=== PATIENT | female | born 1965 | race Caucasian/White ===

== ENCOUNTER → 2017-09-04 | Day surgery (SDC) | payer OTHER ==
[2017-08-27 16:09] LABS: HEMOGLOBIN 13.3 g/dL (12.0-16.0)
[2017-08-27 16:27] LABS: ANION GAP 10.8 mmol/L (8-16); BLOOD UREA NITROGEN 10 mg/dL (7-26); BUN/CREATININE RATIO 11 (6-25); CALCIUM 9.6 mg/dL (8.4-10.2); CARBON DIOXIDE 26 mmol/L (22-29); CHLORIDE 103 mmol/L (98-107); EST GLOMERULAR FILTRATION RATE > 60 ML/MIN (60-); GLUCOSE 160 mg/dL (74-118); POTASSIUM 3.8 mmol/L (3.5-5.1); SODIUM 136 mmol/L (136-145)
[~2017-09-04] MED LIST: ALPRAZOLAM ODT0.5 MG PO; ATORVASTATIN CA20 MG PO; BUPIVACAINE HC 0.75% PF 10ML VIAL INJ ONE; BUPROPION HCL XL; CHONDR SU A NA/HYALUR SOD 1 EACH KIT IO ONE; CYCLOPENTOLATE HCL 1% OPTH SOLN 2ML BTL ONE; EPINEPHRINE HCL INJ 1 MG/ML AMP ONE; FENTANYL CITRATE/PF 100MCG/2 ML INJ ONE; GATIFLOXACIN(OPTH) 5 ML LIQD ONE; LEVEMIR 10100 UNIT/1; LIDOCAINE 2% /EPINEPHRINE 20 ML SDV INJ ONE; LIDOCAINE HCL 2% LOCAL INJ 5 ML SDV VIAL INJ ONE; LIDOCAINE HCL-PF 4% 40 MG/1 ML 5ML AMP ONE; METFORMIN HCL500 M3 PO; MIDAZOLAM HCL 2 MG/2 ML VIAL ONE; NOVOLOG100 UNITS1 SC; NUVIGIL250 MG PO; PHENYLEPHRINE HCL 2 ML DROPS ONE; PILOCARPINE HCL(OPTH) 15 ML LIQD ONE; POVIDONE IODINE 5% (OPTH) 30 ML BTL ONE; PROPOFOL IV EMULSION 10 MG/ML 20 ML VIAL ONE; PROTONIX40 M2 PO; TOBRAMYCIN/DEXAMETHASONE(OPTH) 3.5 GM TUBE ONE; TRILIPIX; Z LAMOTRIGINE PO; Z NUVIGIL PO; Z.0.ABILIFY10 MG PO; Z.0.AMLODIPINE BESYL PO; Z.0.CLONAZEPAM2 MG PO; Z.0.CRESTOR10 MG PO; Z.0.GLIPIZIDE ER5 MG PO; Z.0.LEVOTHYROXINE50 PO; Z.0.LISINOPRIL5 MG PO; Z.0.SERTRALINE HCL10 PO; [UNRECOGNIZED DRUG - OTHER] PO; [UNRECOGNIZED DRUG - OTHER] PO
== END | disposition home or self-care (01) ==
LOC: OR 06:57
PROVIDERS: ATTEND Ophthalmology
DX: H25.11 Age-related nuclear cataract, right eye (principal); I10 Essential (primary) hypertension; G47.33 Obstructive sleep apnea (adult) (pediatric); E11.9 Type 2 diabetes mellitus without complications; K21.9 Gastro-esophageal reflux disease without esophagitis; F31.9 Bipolar disorder, unspecified; F41.9 Anxiety disorder, unspecified; Z88.5 Allergy status to narcotic agent; Z01.810 Encounter for preprocedural cardiovascular examination; Z01.812 Encounter for preprocedural laboratory examination; Z79.4 Long term (current) use of insulin
CPT/HCPCS: 36415 ×2; 66982; 80048; 81025; 82948; 85014; 85018; 93005; J0171; J2001 ×2; J2250; V2632

== ENCOUNTER → 2018-10-01 | Day surgery (SDC) | payer MEDICARE ==
[2018-09-21 15:50] LABS: HEMOGLOBIN 12.7 g/dL (12.0-16.0)
[2018-09-21 16:07] LABS: ANION GAP 11.7 mmol/L (8-16); BLOOD UREA NITROGEN 8 mg/dL (7-26); BUN/CREATININE RATIO 11 (6-25); CALCIUM 9.7 mg/dL (8.4-10.2); CARBON DIOXIDE 26 mmol/L (22-29); CHLORIDE 101 mmol/L (98-107); CREATININE, SERUM 0.76 mg/dL (0.57-1.11); EST GLOMERULAR FILTRATION RATE > 60 ML/MIN (60-); GLUCOSE 79 mg/dL (74-118); POTASSIUM 3.7 mmol/L (3.5-5.1); SODIUM 135 mmol/L (136-145)
[~2018-10-01] MED LIST changes: +ABILIFY5 MG PO; +AMLODIPINE BESYL5 MG PO; +CRESTOR10 MG PO; +CYTOMEL25 MCG PO; +EPINEPHRINE HCL 1:1000 1ML 1 MG/ML AMP ONE; -EPINEPHRINE HCL INJ 1 MG/ML AMP ONE; +LAMICTAL100 MG PO; -LEVEMIR 10100 UNIT/1; +LEVEMIR 10100 UNIT/1 SQ; +LEVOTHYROXINE50 MCG PO; +METFORMIN HCL500 MG PO; +NORCO 10-325 T1 EACH PO; +VALIUM2 MG PO; +ZESTRIL5 MG PO; +[UNRECOGNIZED DRUG - OTHER] PO
--- OUTSIDE RECORDS SUMMARY | 2018-10-01 05:21 | XMS REPORT ---
Author Author Admin, [place] Organization [facility] Address [address] [address] Phone Allergies, Adverse Reactions, Alerts Allergy Name Reaction Description Start Date Severity Status Provider PROZAC Critical Active Arthur Robledo MD TEGRETOL Critical Active Arthur Robledo MD CODEINE Critical Active Arthur Robledo MD Conditions or Problems Problem Name Problem Code Onset Date Status Entry Date Provider Comment Standard Description Annotate BIPOLAR II DISORDER, MOST RECENT EPISODE DEPRESSED Active Arthur Robledo MD Other bipolar disorders Medication List Medication Instructions Start Date Stop Date Generic Name NDC Status Provider Patient Instruction VALIUM 5 MG ORAL TABLET Take 1 tab By Mouth Every 4 - 6 hours As Needed anxiety DIAZEPAM [id number] Active Arthur Robledo MD Active ZOLOFT 100 MG ORAL TABLET Take 1 1/2 tab By Mouth Every Morning SERTRALINE HCL 29129488219 Active Arthur Robledo MD Active ABILIFY 20 MG ORAL TABLET Take 1 tab By Mouth Every Morning ARIPIPRAZOLE 23034010642 Active Arthur Robledo MD Active Vital Signs Date Name Value Unit Range Description blood pressure, diastolic 84 mm[Hg] BP olivera blood pressure, systolic 147 mm[Hg] BP sys height E&M 68 [in_us] Bdy height pulse rate E&M 80 /min Heart rate weight E&M 186.40 [lb_av] Weight Measured blood pressure, diastolic 75 mm[Hg] BP olivera blood pressure, systolic 130 mm[Hg] BP sys height E&M 68 [in_us] Bdy height pulse rate E&M 89 /min Heart rate weight E&M 185.50 [lb_av] Weight Measured blood pressure, diastolic 75 mm[Hg] BP olivera blood pressure, systolic 148 mm[Hg] BP sys height E&M 68 [in_us] Bdy height pulse rate E&M 90 /min Heart rate weight E&M 187.50 [lb_av] Weight Measured Encounters Date Encounter Provider Code Facility 10:52:14 CDT Est Patient Detailed - 40353 Arthur Robledo MD CPT-09652 [facility] 14:20:40 CDT Est Patient Exp Problem - 90335 Arthur Robledo MD CPT-27851 [facility] Procedures Code Procedure Name Date Entry Date Standard Description CPT-60162 Diagnostic evaluation (no medical) - 63571 11:03:28 CDT CPT-01242 Diagnostic evaluation with medical - 24008 14:13:21 MANAGER MEDICAL WRITING
--- OUTSIDE RECORDS SUMMARY | 2018-10-01 05:21 | XMS REPORT | Clinical Summary ---
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 Name Role Phone Aurora Lucia MD PCP Allergies Comments Active Allergy Reactions Severity Noted Date Codeine 02/11/2018 Medications Not on file Active Problems Not on file Encounters Care Team Description Date Type Specialty N/A 02/12/2018 Intake Access Isak Mahoney, Depression with suicidal ideation (Primary Dx); Bipolar 1 disorder, depressed 02/11/2018 Emergency Emergency Medicine - 02/12/2018 after 09/30/2017 Social History Date Tobacco Use Types Packs/Day Years Used Current Every Day Smoker Alcohol Use Drinks/Week oz/Week Comments No Sex Assigned at Date Recorded Not on file Industry Job Start Date Occupation Not on file Not on file Not on file Travel End Travel History Travel Start No recent travel history available. Last Filed Vital Signs Time Taken Vital Sign Reading 02/12/2018 5:12 AM CDT Blood Pressure 118/69 02/12/2018 5:12 AM CDT Pulse 78 02/11/2018 9:26 PM CDT Temperature 36.6 C (97.9 F) 02/12/2018 5:12 AM CDT Respiratory Rate 16 02/12/2018 5:12 AM CDT Oxygen Saturation 95% - Inhaled Oxygen - Concentration - Weight - 02/11/2018 10:08 PM CDT Height 172.7 cm (5' 8") - Body Mass Index - Plan of Treatment Not on file Procedures Comments Procedure Name Priority Date/Time Associated Diagnosis URINE CULTURE STAT 02/12/2018 1:20 AM CDT ECG 12-LEAD STAT 02/11/2018 10:57 PM CDT ESTIMATED GFR STAT 02/11/2018 10:45 PM CDT URINALYSIS SCREEN AND STAT 02/11/2018 MICROSCOPY, WITH REFLEX 10:45 PM CDT TO CULTURE URINE DRUGS OF ABUSE STAT 02/11/2018 SCREEN 10:45 PM CDT SALICYLATE LEVEL STAT 02/11/2018 10:45 PM CDT ACETAMINOPHEN LEVEL STAT 02/11/2018 10:45 PM CDT ALCOHOL LEVEL, BLOOD STAT 02/11/2018 10:45 PM CDT T4, FREE STAT 02/11/2018 10:45 PM CDT THYROID STIMULATING STAT 02/11/2018 HORMONE 10:45 PM CDT COMPREHENSIVE METABOLIC STAT 02/11/2018 PANEL 10:45 PM CDT HC COMPLETE BLD COUNT STAT 02/11/2018 W/AUTO DIFF 10:45 PM CDT after 09/30/2017 Results * Urine culture (02/12/2018 1:20 AM CDT) Urine culture SEE COMMENTComment: [facility] DEPARTMENT OF Bacteriuria screen negative. PATHOLOGY AND GENOMIC MEDICINE Performing Organization Address [facility] Phone Number [facility] DEPARTMENT OF [address] [place] [address] PATHOLOGY AND GENOMIC MEDICINE * ECG 12 lead (02/11/2018 10:57 PM CDT) Ventricular rate 78 HM MUSE Atrial rate 78 [facility] MUSE MN interval 156 [facility] MUSE QRSD interval 82 HM MUSE QT interval 398 [facility] MUSE QTC interval 453 [facility] MUSE P axis 1 55 HM MUSE QRS axis 1 74 [facility] MUSE T wave axis 62 [facility] MUSE EKG impression Normal sinus rhythm-Possible [facility] MUSE Left atrial enlargement-Borderline ECG-In automated comparison with ECG of 10-SEP-2009 14:38,-Nonspecific T wave abnormality no longer evident in Inferior leads- Performing Organization Address [facility] Phone Number [facility] [address] [place] [address] * Urinalysis screen and microscopy, with reflex to culture (02/11/2018 10:45 PM CDT) Specimen site Clean catch [facility] DEPARTMENT OF PATHOLOGY AND GENOMIC MEDICINE Color, UA Straw [facility] DEPARTMENT OF PATHOLOGY AND GENOMIC MEDICINE Appearance, UA Clear [facility] DEPARTMENT OF PATHOLOGY AND GENOMIC MEDICINE Specific gravity, UA 1.005 1.001 - 1.035 [facility] DEPARTMENT OF PATHOLOGY AND GENOMIC MEDICINE pH, UA 7.0 5.0 - 8.5 [facility] DEPARTMENT OF PATHOLOGY AND GENOMIC MEDICINE Protein, UA Negative Negative [facility] DEPARTMENT OF PATHOLOGY AND GENOMIC MEDICINE Glucose, UA Negative Negative [facility] DEPARTMENT OF PATHOLOGY AND GENOMIC MEDICINE Ketones, UA Negative Negative [facility] DEPARTMENT OF PATHOLOGY AND GENOMIC MEDICINE Bilirubin, UA Negative Negative [facility] DEPARTMENT OF PATHOLOGY AND GENOMIC MEDICINE Blood, UA Negative Negative [facility] DEPARTMENT OF PATHOLOGY AND GENOMIC MEDICINE Nitrite, UA Negative Negative [facility] DEPARTMENT OF PATHOLOGY AND GENOMIC MEDICINE Urobilinogen, UA <2.0 <2.0 [facility] DEPARTMENT OF PATHOLOGY AND GENOMIC MEDICINE Leukocyte esterase, UA Negative Negative [facility] DEPARTMENT OF PATHOLOGY AND GENOMIC MEDICINE Epithelial cells, UA 6 /HPF [facility] DEPARTMENT OF PATHOLOGY AND GENOMIC MEDICINE WBC, UA 1 0 - 4 /HPF [facility] DEPARTMENT OF PATHOLOGY AND GENOMIC MEDICINE RBC, UA <1 0 - 5 /HPF [facility] DEPARTMENT OF PATHOLOGY AND GENOMIC MEDICINE Bacteria, UA None seen None seen [facility] DEPARTMENT OF PATHOLOGY AND GENOMIC MEDICINE Yeast, UA Few (A) [facility] DEPARTMENT OF PATHOLOGY AND GENOMIC MEDICINE Yeast with pseudohyphae, None seen [facility] DEPARTMENT OF UA PATHOLOGY AND GENOMIC MEDICINE Specimen Urine Performing Organization Address City/State/Zipcode Phone Number [facility] DEPARTMENT OF [address] [place] [address] PATHOLOGY AND GENOMIC MEDICINE * Estimated GFR (02/11/2018 10:45 PM CDT) Estimated GFR 64 mL/min/1.73 m2 [facility] DEPARTMENT OF Comment: PATHOLOGY AND CatergoryUnitsInte GENOMIC MEDICINE rpretation G1 >=90 Normal or high G2 60-89Mildly decreased [id number] Mildly to moderately decreased Z2x25-19 Moderately to severely decreased G4 15-29Severely decreased G5 <15Kidney failure The eGFR was calculated using the Chronic Kidney Disease Epidemiology Collaboration (CKD-EPI) equation. Interpretation is based on recommendations of the National Kidney Foundation-Kidney Disease Outcomes Quality Initiative (NKF-KDOQI) published in 2014. Specimen Plasma specimen Performing Organization Address [facility] Phone Number [place] [phone] PATHOLOGY AND GENOMIC MEDICINE * Urine drugs of abuse screen (02/11/2018 10:45 PM CDT) Amphetamine screen, urine Negative [facility] DEPARTMENT OF PATHOLOGY AND GENOMIC MEDICINE Barbiturate screen, urine Negative [facility] DEPARTMENT OF PATHOLOGY AND GENOMIC MEDICINE Benzodiazepine screen, Negative [facility] DEPARTMENT OF urine PATHOLOGY AND GENOMIC MEDICINE Cannabinoid screen, urine Negative [facility] DEPARTMENT OF PATHOLOGY AND GENOMIC MEDICINE Cocaine screen, urine Negative [facility] DEPARTMENT OF PATHOLOGY AND GENOMIC MEDICINE Methadone metabolite Negative [facility] DEPARTMENT OF (EDDP), urine PATHOLOGY AND GENOMIC MEDICINE Opiates screen, urine Negative [facility] DEPARTMENT OF PATHOLOGY AND GENOMIC MEDICINE Oxycodone screen, urine Negative [facility] DEPARTMENT OF PATHOLOGY AND GENOMIC MEDICINE Phencyclidine screen, Negative [facility] DEPARTMENT OF urine PATHOLOGY AND GENOMIC MEDICINE Tricyclic screen, urine Negative [facility] DEPARTMENT OF Comment: PATHOLOGY AND Drug screen minimum GENOMIC MEDICINE concentration of detectability Amphetamines 1000 ng/mL Barbiturates 200 ng/mL Benzodiazepines 300 ng/mL Cocaine 300 ng/mL Methadone 300 ng/mL Opiates 300 ng/mL Oxycodone 300 ng/mL Phencyclidine 25 ng/mL Cannabinoids 50 ng/mL Tricyclics 1000 ng/mL Negative test results indicates presumptive evidence of lack of clinically significant drug concentration in this urine specimen. Positive test results are presumptive evidence of clinically significant drug concentration in this urine specimen. Testing performed for medical purposes only. Specimen Urine Performing Organization Address [facility] Phone Number [address] [address] PATHOLOGY AND GENOMIC MEDICINE * CBC with platelet and differential (02/11/2018 10:45 PM CDT) WBC 12.02 (H) 4.50 - 11.00 k/uL [facility] DEPARTMENT OF PATHOLOGY AND GENOMIC MEDICINE RBC 4.45 4.20 - 5.50 m/uL [facility] DEPARTMENT OF PATHOLOGY AND GENOMIC MEDICINE HGB 13.2 12.0 - 16.0 g/dL [facility] DEPARTMENT OF PATHOLOGY AND GENOMIC MEDICINE HCT 41.7 37.0 - 47.0 % [facility] DEPARTMENT OF PATHOLOGY AND GENOMIC MEDICINE MCV 93.7 82.0 - 100.0 fL [facility] DEPARTMENT OF PATHOLOGY AND GENOMIC MEDICINE MCH 29.7 27.0 - 34.0 pg [facility] DEPARTMENT OF PATHOLOGY AND GENOMIC MEDICINE MCHC 31.7 31.0 - 37.0 g/dL [facility] DEPARTMENT OF PATHOLOGY AND GENOMIC MEDICINE RDW - SD 46.4 37.0 - 55.0 fL [facility] DEPARTMENT OF PATHOLOGY AND GENOMIC MEDICINE MPV 10.5 8.8 - 13.2 fL [facility] DEPARTMENT OF PATHOLOGY AND GENOMIC MEDICINE Platelet count 450 (H) 150 - 400 k/uL [facility] DEPARTMENT OF PATHOLOGY AND GENOMIC MEDICINE Nucleated RBC 0.00 /100 WBC [facility] DEPARTMENT OF PATHOLOGY AND GENOMIC MEDICINE Neutrophils 53.8 39.0 - 69.0 % [facility] DEPARTMENT OF PATHOLOGY AND GENOMIC MEDICINE Lymphocytes 34.4 25.0 - 45.0 % [facility] DEPARTMENT OF PATHOLOGY AND GENOMIC MEDICINE Monocytes 8.8 0.0 - 10.0 % [facility] DEPARTMENT OF PATHOLOGY AND GENOMIC MEDICINE Eosinophils 2.3 0.0 - 5.0 % [facility] DEPARTMENT OF PATHOLOGY AND GENOMIC MEDICINE Basophils 0.3 0.0 - 1.0 % [facility] DEPARTMENT OF PATHOLOGY AND GENOMIC MEDICINE Immature granulocytes 0.4Comment: "Immature 0.0 - 1.0 % [facility] DEPARTMENT OF granulocytes" (promyelocytes, PATHOLOGY AND myelocytes, metamyelocytes) GENOMIC MEDICINE Specimen Blood Performing Organization Address City/[facility] [place] [address] PATHOLOGY AND GENOMIC MEDICINE * Thyroid stimulating hormone (02/11/2018 10:45 PM CDT) TSH 2.49 0.27 - 4.20 uIU/mL [facility] DEPARTMENT OF PATHOLOGY AND GENOMIC MEDICINE Specimen Plasma specimen Performing Organization Address City/[facility] [place] [address] PATHOLOGY AND GENOMIC MEDICINE * T4, free (02/11/2018 10:45 PM CDT) T4, free 0.8 (L) 0.9 - 1.7 ng/dL [facility] DEPARTMENT OF PATHOLOGY AND GENOMIC MEDICINE Specimen Plasma specimen Performing Organization Address [facility] [place] [address] PATHOLOGY AND GENOMIC MEDICINE * Alcohol level, blood (02/11/2018 10:45 PM CDT) Alcohol None Detected mg/dL [facility] DEPARTMENT OF Comment: PATHOLOGY AND Normal GENOMIC MEDICINE None Detected Legal Intoxication in [place]80 mg/dL (0.08%) - Whole Blood Toxic Concentration 200 mg/dL (0.2%) Potentially Fatal3 50 - 500 mg/dL (0.35 - 0.5%) Alcohol percent None Detected % [facility] DEPARTMENT OF PATHOLOGY AND GENOMIC MEDICINE Specimen Plasma specimen Performing Organization Address City/[facility] [place] [address] PATHOLOGY AND GENOMIC MEDICINE * Acetaminophen level (02/11/2018 10:45 PM CDT) Acetaminophen level <5.0 (L) 10.0 - 30.0 ug/mL [facility] DEPARTMENT OF Comment: PATHOLOGY AND Therapeutic GENOMIC MEDICINE 10-30 ug/mL Possible Toxicity 150-200 ug/mL Probable Toxicity >200 ug/mL Specimen Plasma specimen Performing Organization Address City/[facility] [place] [address] PATHOLOGY AND GENOMIC MEDICINE * Salicylate level (02/11/2018 10:45 PM CDT) Salicylate <3.0 3.0 - 30.0 mg/dL [facility] DEPARTMENT OF PATHOLOGY AND GENOMIC MEDICINE Specimen Plasma specimen Performing Organization Address [facility] [place] [address] PATHOLOGY AND GENOMIC MEDICINE * Comprehensive metabolic panel (02/11/2018 10:45 PM CDT) Sodium 139 135 - 148 mEq/L [facility] DEPARTMENT OF PATHOLOGY AND GENOMIC MEDICINE Potassium 3.9 3.5 - 5.0 mEq/L [facility] DEPARTMENT OF PATHOLOGY AND GENOMIC MEDICINE Chloride 99 98 - 112 mEq/L [facility] DEPARTMENT OF PATHOLOGY AND GENOMIC MEDICINE CO2 26 24 - 31 mEq/L [facility] DEPARTMENT OF PATHOLOGY AND GENOMIC MEDICINE Anion gap 14@ANIO 7 - 15 mEq/L [facility] DEPARTMENT OF PATHOLOGY AND GENOMIC MEDICINE BUN 13 6 - 20 mg/dL [facility] DEPARTMENT OF PATHOLOGY AND GENOMIC MEDICINE Creatinine 1.01 (H) 0.50 - 0.90 mg/dL [facility] DEPARTMENT OF PATHOLOGY AND GENOMIC MEDICINE Glucose 62 (L) 65 - 99 mg/dL [facility] DEPARTMENT OF PATHOLOGY AND GENOMIC MEDICINE Calcium 10.4 (H) 8.3 - 10.2 mg/dL [facility] DEPARTMENT OF PATHOLOGY AND GENOMIC MEDICINE Protein 7.9 6.3 - 8.3 g/dL [facility] DEPARTMENT OF Comment: PATHOLOGY AND [place] GENOMIC MEDICINE 4.6-7.0 g/dL 1 week 4.4-7.6 g/dL 7 months-1year 5.1-7.3 g/dL 1-2 years5.6-7 .5 g/dL >3 years6.0-8 .0 g/dL 18-150 6.3-8.3 g/dL Albumin 4.0 3.5 - 5.0 g/dL [facility] DEPARTMENT OF PATHOLOGY AND GENOMIC MEDICINE A/G ratio 1.0 0.7 - 3.8 [facility] DEPARTMENT OF PATHOLOGY AND GENOMIC MEDICINE Alkaline phosphatase 51 35 - 104 U/L [facility] DEPARTMENT OF PATHOLOGY AND GENOMIC MEDICINE AST 24 10 - 35 U/L [facility] DEPARTMENT OF PATHOLOGY AND GENOMIC MEDICINE ALT 20 5 - 50 U/L [facility] DEPARTMENT OF PATHOLOGY AND GENOMIC MEDICINE Total bilirubin <0.2 0.0 - 1.2 mg/dL [facility] DEPARTMENT OF PATHOLOGY AND GENOMIC MEDICINE Specimen Plasma specimen Performing Organization Address City/State/Zipcode Phone Number [facility] DEPARTMENT OF [address] [place] [phone] PATHOLOGY AND GENOMIC MEDICINE after 09/30/2017 Insurance Payer Benefit Subscriber ID Type Phone Address Plan / Group [employer] xxxxxxxxx [employer] Advance Directives Patient has advance care planning documents on file. For more information, giorgio agudelo contact: Tal Wheeler [address] [place] [phone]
[2018-10-01 08:25] VITALS: BP 129/72
== END | disposition home or self-care (01) ==
LOC: OR 05:18
PROVIDERS: ATTEND Ophthalmology
DX: H25.12 Age-related nuclear cataract, left eye (principal); E11.9 Type 2 diabetes mellitus without complications; G47.30 Sleep apnea, unspecified; I10 Essential (primary) hypertension; F31.9 Bipolar disorder, unspecified; Z88.6 Allergy status to analgesic agent; Z88.8 Allergy status to other drugs, medicaments and biological substances; Z01.810 Encounter for preprocedural cardiovascular examination; Z01.812 Encounter for preprocedural laboratory examination; Z79.4 Long term (current) use of insulin
CPT/HCPCS: 36415 ×2; 66982; 80048; 82948; 85014; 85018; 93005; J0171; J2001 ×2; J2250; J2704; V2632

== ENCOUNTER → 2022-10-31 | Outpatient (CLI) | payer MEDICARE ==
[~2022-10-31] MED LIST changes: -BUPIVACAINE HC 0.75% PF 10ML VIAL INJ ONE; -CHONDR SU A NA/HYALUR SOD 1 EACH KIT IO ONE; -CYCLOPENTOLATE HCL 1% OPTH SOLN 2ML BTL ONE; -EPINEPHRINE HCL 1:1000 1ML 1 MG/ML AMP ONE; -FENTANYL CITRATE/PF 100MCG/2 ML INJ ONE; -GATIFLOXACIN(OPTH) 5 ML LIQD ONE; -LIDOCAINE 2% /EPINEPHRINE 20 ML SDV INJ ONE; -LIDOCAINE HCL 2% LOCAL INJ 5 ML SDV VIAL INJ ONE; -LIDOCAINE HCL-PF 4% 40 MG/1 ML 5ML AMP ONE; -MIDAZOLAM HCL 2 MG/2 ML VIAL ONE; -PHENYLEPHRINE HCL 2 ML DROPS ONE; -PILOCARPINE HCL(OPTH) 15 ML LIQD ONE; -POVIDONE IODINE 5% (OPTH) 30 ML BTL ONE; -PROPOFOL IV EMULSION 10 MG/ML 20 ML VIAL ONE; -TOBRAMYCIN/DEXAMETHASONE(OPTH) 3.5 GM TUBE ONE
== END ==
LOC: RAD 14:29
PROVIDERS: ATTEND Student in an Organized Health Care Education/Training Program
DX: M54.2 Cervicalgia (principal)
CPT/HCPCS: 72050